=== PATIENT | female | born 1955 | race Hispanic/Latino ===

== ENCOUNTER 2018-03-29 00:05 | Emergency (ER) | payer MEDICAID ==
[~2018-03-29] VITALS: Ht 170.2 cm; Wt 72.6 kg
[2018-03-29] MEDS ORDERED: METFORMIN HCL1000 MG PO (00:19)
[2018-03-29] MEDS ORDERED: LISINOPRIL10 MG PO (00:19)
[2018-03-29] MEDS ORDERED: SIMVASTATIN10 MG PO (00:20)
[2018-03-29] MEDS ORDERED: NITROGLYCERIN0.4 MG SL (00:21)
--- NOTE | 2018-03-29 20:24 | EKG ---
[facility] [address] [place] [address] Signed Atrial-sensed ventricular-paced rhythm Abnormal ECG No previous ECGs available Confirmed by NOLBERTO ALCARAZ MD ([id number] on 03/29/2018 8:23:55 PM Electronically Signed By: NOLBERTO ALCARAZ MD 03/29/182023 PATIENT NAME: ANNAMARIE DIEZ Electrocardiogram DATE OF : 57 PHYSICIAN: NOLBERTO ALCARAZ MD REPORT #: [id number] REPORT IS CONFIDENTIAL AND NOT TO BE RELEASED WITHOUT AUTHORIZATION
== END 2018-03-29 03:59 | disposition home or self-care (01) ==
LOC: ED 00:05
DX: R07.9 Chest pain, unspecified (principal); I10 Essential (primary) hypertension; E78.00 Pure hypercholesterolemia, unspecified; E11.9 Type 2 diabetes mellitus without complications; I25.2 Old myocardial infarction; Z79.899 Other long term (current) drug therapy; Z79.84 Long term (current) use of oral hypoglycemic drugs
CPT/HCPCS: 36415; 71045; 80053; 84484; 85025; 93005; 93010; 99285